=== PATIENT | male | born 1945 | race Caucasian/White ===

== ENCOUNTER 2019-04-18 09:03 | Day surgery (SDC) | payer BC, MEDICARE ==
[2019-04-18] VITALS (9 sets, daily range): BP systolic 112–146; BP diastolic 65–82
[~2019-04-18] VITALS: Ht 184.2 cm; Wt 97.1 kg
[~2019-04-18 09:03] MED LIST: LR 1000ml 1,000 ML IVLG SCH
[2019-04-18] MEDS ORDERED: ELIQUIS5 MG PO (09:45)
[2019-04-18] MEDS ORDERED: LAMICTAL100 MG ORAL (09:46)
[2019-04-18] MEDS ORDERED: SYNTHROID112 MCG ORAL (09:47)
[2019-04-18] MEDS ORDERED: CIALIS5 MG PO (09:47)
[2019-04-18] MEDS ORDERED: VIAGRA100 MG PO (09:48)
--- NOTE | 2019-04-18 10:36 | Short Stay Surgery H&P ---
History of Present Illness History of Present Illness Chief Complaint see attached H&P HPI Vinay Stewart is a 74 year old male who was admitted on for Screening Patient History Allergies: Coded Allergies: No Known Allergies (Unverified , 04/17/19) Medication History Scheduled Apixaban (Eliquis), 5 MG PO BID, (Reported) Lamotrigine* (Lamictal*), 200 MG ORAL DAILY, (Reported) Levothyroxine Sodium* (Synthroid*), 112 MCG ORAL DAILY, (Reported) Sildenafil Citrate (Viagra), 100 MG PO PRN, (Reported) Tadalafil (Cialis), 5 MG PO DAILY, (Reported) Physical Exam Vital Signs Last Vital Signs Date Time Temp Pulse Resp B/P (MAP) Pulse Ox O2 Delivery O2 Flow Rate FiO2 04/18/19 09:53 98.2 56 18 128/75 96 Room Air Plan Attestation Are the patient's medical conditions optimized for surgery? Bijan Gonzalez MD Apr 18, 2019 10:36
--- NOTE | 2019-04-18 10:37 | Pre-Procedure Note/Attestation ---
Pre-Procedure Note/Attestation Complete Prior to Procedure Planned Procedure: not applicable Procedure Narrative: colon Indications for Procedure Pre-Operative Diagnosis: screening Attestation I attest that I discussed the nature of the procedure; its benefits; risks and complications; and alternatives (and the risks and benefits of such alternatives ), prior to the procedure, with the patient (or the patient's legal community health program representative). I attest that, if there was a reasonable possibility of needing a blood transfusion, the patient (or the patient's legal community health program representative) was given the [facility] standardized written summary, pursuant to the Deonte Sandeep Blood Safety Act ([place] Health and Safety Code # 1645, as amended). I attest that I re-evaluated the patient just prior to the surgery and that there has been no change in the patient's H&P, except as documented below: Bijan Gonzalez MD Apr 18, 2019 10:37
--- NOTE | 2019-04-18 11:19 | Anethesia Preoperative Eval ---
Anesthesia Pre-op PMH/ROS General Date of Evaluation: Apr 18, 2019 Time of Evaluation: 10:30 ASA Score: ASA 2 Mallampati Score Class I : Soft palate, uvula, fauces, pillars visible Class II: Soft palate, uvula, fauces visible Class III: Soft palate, base of uvula visible Class IV: Only hard plate visible Mallampati Classification: Class II Surgeon: jocelyn Diagnosis: screening Surgical Procedure: Colonoscopy Anesthesia History: none Family History: no anesthesia problems Allergies: Coded Allergies: No Known Allergies (Unverified , 04/17/19) Medications: see eMAR Patient NPO?: Yes NPO Date: Apr 18, 2019 NPO Time: 00:01 Past Medical History Cardiovascular: Reports: HTN; Denies: CAD, CO, valve dz, arrhythmia, other Pulmonary: 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 Exam Physician Exam Last Vital Signs Date Time Temp Pulse Resp B/P (MAP) Pulse Ox O2 Delivery O2 Flow Rate FiO2 04/18/19 09:53 98.2 56 18 128/75 96 Room Air Constitutional: NAD Neurologic: CN 2-12 intact Cardiovascular: RRR Respiratory: CTA Gastrointestinal: S/NT/ND Airway Exam Mallampati Classification 2 Mallampati Score: Class II MO: full ROM: full Dentures: no upper, no lower Anesthesia Pre-op A/P Studies Pre-op Studies: EKG - SR Risk Assessment & Plan Plan: mac Status Change Before Surgery: No Pre-Antibiotics Drug: none Marah Richey CRNA Apr 18, 2019 11:19
--- NOTE | 2019-04-18 11:21 | Immediate Post-Op Evaluation ---
Immediate Post-Op Evalulation Immediate Post-Op Evalulation Procedure: Colonoscopy Date of Evaluation: Apr 18, 2019 Time of Evaluation: 11:20 IV Fluids: 600 Blood Pressure Systolic: 115 Blood Pressure Diastolic: 75 Pulse Rate: 76 Respiratory Rate: 14 O2 Sat by Pulse Oximetry: 98 Temperature (Fahrenheit): 97.7 Nausea: No Vomiting: No Patient Status: awake, reacts, patent Hydration Status: adequate Drug: none CheyanneriMarah pagan CRNA Apr 18, 2019 11:21
--- NOTE | 2019-04-18 12:44 | 48 Hour Post Anesthesia Eval ---
Post Anesthesia Evaluation Procedure: Colonoscopy Date of Evaluation: Apr 18, 2019 Time of Evaluation: 12:44 Blood Pressure Systolic: 125 0: 65 Pulse Rate: 52 Respiratory Rate: 14 Temperature (Fahrenheit): 97.5 O2 Sat by Pulse Oximetry: 100 Airway: patent Nausea: No Vomiting: No Hydration Status: adequate Mental Status/LOC: patient returned to baseline Post-Anesthesia Complications: none Follow-up care needed: N/A Marah Richey SWEATER DESIGNER Apr 18, 2019 12:44
--- NOTE | 2019-04-18 19:25 | Endoscopy Procedure Note ---
Endoscopy Procedure Note Anesthesia Anesthesiologist: Marah CAGE Anesthesia: MAC Inserted Devices Implant(s) used?: No GI Core Measures 50 yrs or older w/o bx or poly: Yes 10yrs. F/U recommended: No If not recommended, why?: Above average risk 18 years or older w/prev. colo: No <3yrs. since last colonoscopy: No Med reason:<3 yrs.: System Reason:<3 yrs.: Last colonoscopy >= to 3yrs: Yes Bijan Gonzalez MD Apr 18, 2019 19:25
--- NOTE | 2019-04-18 22:31 | Procedure Note ---
DATE OF PROCEDURE: 04/18/2019 GASTROENTEROLOGY PROCEDURE REPORT PROCEDURE: Colonoscopy with snare polypectomy and biopsy. SURGEON: Bijan Gonzalez M.D. ANESTHESIA: Please see the anesthesia report for details. PRE-ENDOSCOPIC DIAGNOSIS: Need for screening colonoscopy. POST-ENDOSCOPIC DIAGNOSES: 1. Diminutive polyp in the cecum, status post biopsy removal. 2. 4 to 5 mm polyp on the ileocecal valve, status post hot snare polypectomy. 3. Diminutive polyp in the descending colon at 50 cm, status post biopsy removal. 4. Mild diverticulosis. 5. 8 to 9 mm polyp with short stalk in the sigmoid colon at 20 cm, status post hot snare polypectomy. DESCRIPTION OF PROCEDURE: The procedure, its risks, indications, alternatives, and possible complications were explained and informed consent was obtained. A rectal exam was then done and then colonoscope was introduced into the rectum and advanced to the cecum. The colonoscope was then gradually withdrawn and mucosa examined carefully. Findings and treatments were as listed above. The colonoscope was removed. The patient was sent to recovery in good condition. COMPLICATIONS: None. RECOMMENDATIONS: 1. High-fiber diet. 2. Follow up biopsy results. 3. Outpatient followup. Thank you for asking me to participate in the care of this patient. Bijan Gonzalez M.D. DR: AMARIS JOB#: [id number] CC: Michelle Berrios M.D.
== END 2019-04-18 12:30 | disposition home or self-care (01) ==
LOC: GAS 09:03
DX: Z12.11 Encounter for screening for malignant neoplasm of colon (principal); K57.90 Diverticulosis of intestine, part unspecified, without perforation or abscess without bleeding; Z79.899 Other long term (current) drug therapy; I10 Essential (primary) hypertension; G47.33 Obstructive sleep apnea (adult) (pediatric); E03.9 Hypothyroidism, unspecified
CPT/HCPCS: 94003; 94150